=== PATIENT | female | born 1990 | race Caucasian/White ===

== ENCOUNTER → 2016-06-23 13:27 | Outpatient (CLI) | payer OTHER ==
[2014-01-19 08:12] VITALS: BMI 19.3
[~2016-06-23 13:27] MED LIST: FERROUS SULFAT325 MG PO; IBUPROFEN600 MG PO; LORTAB 5/500 TA1 TA2 PO; PERCOCET 5-3251 TAB PO; PRENATAL COMPLE1 TAB PO
[2016-06-23 14:49] LABS: APPEARANCE CLEAR (CLEAR); BILIRUBIN NEGATIVE (NEGATIVE); COLOR YELLOW (YELLOW); GLUCOSE 100 mg/dL (NEGATIVE); KETONE NEGATIVE (NEGATIVE); LEUKOCYTE ESTERASE NEGATIVE (NEGATIVE); NITRITE NEGATIVE (NEGATIVE); PROTEIN NEGATIVE (NEGATIVE); SPECIFIC GRAVITY 1.025 (1.005-1.020); UROBILINOGEN NORMAL (NORMAL)
== END | disposition home or self-care (01) ==
LOC: D.LDO 13:27
PROVIDERS: Obstetrics & Gynecology
DX: O36.8130 Decreased fetal movements, third trimester, not applicable or unspecified (principal); Z3A.38 38 weeks gestation of pregnancy

== ENCOUNTER 2016-07-06 04:29 | Inpatient (IN) | payer OTHER ==
[~2016-07-06] VITALS: Ht 170.2 cm; Wt 82.3 kg
[~2016-07-06 04:29] MED LIST changes: -FERROUS SULFAT325 MG PO; -PERCOCET 5-3251 TAB PO; -PRENATAL COMPLE1 TAB PO
[2016-07-06] MEDS ORDERED: FERROUS SULFAT325 MG PO (05:00)
[2016-07-06] MEDS ORDERED: PRENATAL COMPLE1 TAB PO (05:00)
[2016-07-06 05:09] VITALS: BP 109/62; Ht 170.2 cm; Wt 82.3 kg
[2016-07-06 06:05] LABS: HEMATOCRIT 34.6 % (36.0-48.0); HEMOGLOBIN 10.4 g/dL (12-16); MCH 26.1 pg (26.0-34.0); MCHC 30.1 g/dL (31.0-37.0); MCV 86.7 fL (80.0-100.0); MEAN PLATELET VOLUME 10.3 fL (7.4-10.4); RBC 3.99 10x6/uL (4.00-5.40); RDW 17.6 % (11.5-14.5); WBC 10.8 10x3/uL (4.8-10.8)
[2016-07-06 06:37] LABS: APPEARANCE CLOUDY (CLEAR); BACTERIA MANY /hpf (NONE SEEN); BILIRUBIN NEGATIVE (NEGATIVE); COLOR YELLOW (YELLOW); GLUCOSE NEGATIVE (NEGATIVE); KETONE NEGATIVE (NEGATIVE); LEUKOCYTE ESTERASE TRACE (NEGATIVE); MUCUS <1+ /lpf (NONE SEEN); NITRITE NEGATIVE (NEGATIVE); PH 5.5 (5.0-6.0); PROTEIN NEGATIVE (NEGATIVE); RED CELLS - URINE RARE /hpf (0-5); SPECIFIC GRAVITY 1.025 (1.005-1.020); UROBILINOGEN NORMAL (NORMAL); WHITE CELLS - URINE 0-5 /hpf (0-5)
--- NOTE | 2016-07-06 19:00 | NUR ---
SHIFT REPORT FROM SAMAN STANLEY RN
--- NOTE | 2016-07-06 19:10 | NUR ---
PM ROUNDS MADE, PT VISITING WITH A ROOM FULL OF FAMILY AND FRIENDS, INFORMED PT THAT I WILL COME BACK TO DO ASSESSMENT, PT STATES "THANK YOU", PT DENIES NEEDS OR PAIN AT THIS TIME
[2016-07-06 20:00] VITALS: BP 116/67
--- NOTE | 2016-07-06 20:00 | NUR ---
PT FOOT WORKER LIGHT, PT NEEDING TO GET UP TO VOID, ASSESSMENT PER FLOW SHEET, VS OBTAINED, FF, ML, U/U, PT UP TO BR WITH ASSISTANCE, GAIT STEADY, DENIES ANY DIZZYNESS OR LIGHTHEADEDNESS, PT INST ON, ASSISTED WITH, AND VERBALIZES UNDERSTANDING OF CHRISSY CARE, ASSISTED PT WITH CHRISSY PAD, PANTIES AND GOWN, PT DENIES FLATUS, PT BACK TO BED, C/O CRAMPING, INFORMED PT THAT I WILL ADM MOTRIN, PT REQUESTED TO TAKE IT WITH APPLESAUCE, PT DENIES FURTHER NEEDS, FOB HOLDING BABY, OTHER CHILD AND FAMILY IN ROOM
--- NOTE | 2016-07-06 20:23 | NUR ---
ADM TANNER MORTON PER MD ORDERS WITH CHRISTINA ARREOLA, PT DENIES FURTHER NEEDS
--- NOTE | 2016-07-06 21:08 | NUR ---
PT JUST FINISHED , FOB SWADDLING BABY, ADM MOM PO PER MD ORDERS, PT RATES CHRISSY PAIN 2/10, REFUSES PAIN MED AT THIS TIME, INST PT TO USE CALL LIGHT WHEN AND IF SHE DECIDES TO TAKE ANY, BEDDING PROIVDED TO FOB, REQUESTED AND SERVED FRESH H20, DENIES FURTHER NEEDS
--- NOTE | 2016-07-06 22:15 | NUR ---
PT HOLDING BABY, PT INFORMS ME SHE HAS BEEN TRYING TO GET THE NSY NURSE BECAUSE BABY HAS TO HAVE ITS BLOOD SUGAR CHECKED BEFORE FEEDING, INFORMED PT THAT THE NSY NURSE WAS IN A DELIVERY AT THIS TIME, BUT SHOULD BE OUT SHORTLY, INFORMED PT THAT I WILL INFORM THE NSY NURSE SOON SHE IS OUT OF THE DELIVERY, PT VERBALIZES UNDERSTANDING, DENIES FURTHER NEEDS OR PAIN AT THIS TIME, FOB AT BEDSIDE
--- NOTE | 2016-07-07 00:14 | NUR ---
PT RESTING WITH EYES CLOSED, RESP QUIET, NO DISTRESS NOTED, LEFT UNDISTURBED AT THIS TIME, FOB ASLEEP ON COUCH
--- NOTE | 2016-07-07 02:06 | NUR ---
PT RESTING WITH EYES CLOSED, RESP QUIET, NO DISTRESS NOTED, LEFT UNDISTURBED AT THIS TIME, FOB ASLEEP ON COUCH
--- NOTE | 2016-07-07 04:01 | NUR ---
PT BABY, DENIES NEEDS OR PAIN AT THIS TIME, FOB ASLEEP ON COUCH
[2016-07-07 05:27] LABS: BASOPHILS 0.3 % (0.0-2.0); EOSINOPHILS 0.5 % (0-7); HEMATOCRIT 30.8 % (36.0-48.0); HEMOGLOBIN 9.3 g/dL (12-16); IMMATURE GRANULOCYTES 0.6 % (0-5); LYMPHOCYTES 16.3 % (15-50); MCHC 30.2 g/dL (31.0-37.0); MEAN PLATELET VOLUME 10.4 fL (7.4-10.4); MONOCYTES 7.3 % (2-11); PLATELET COUNT 189 10x3/uL (130-400); RBC 3.58 10x6/uL (4.00-5.40); RDW 17.9 % (11.5-14.5); WBC 13.4 10x3/uL (4.8-10.8)
--- NOTE | 2016-07-07 06:05 | NUR ---
PLEASE NOTE THAT ERROR IN DOCUMENTATION OCCURRED REGARDING THE TIME OUT AT 0332 PREVIOUSLY DOCUMENTED. CHARTING WAS PERFORMED ON WRONG PT.
--- NOTE | 2016-07-07 06:10 | NUR ---
PT RESTING WITH EYES CLOSED, RESP QUIET, NO DISTRESS NOTED, LEFT UNDISTURBED AT THIS TIME, FOB ASLEEP ON COUCH
--- NOTE | 2016-07-07 07:00 | NUR ---
SHIFT REPORT TO LUCIANA BRITTON RN
--- NOTE | 2016-07-07 07:35 | NUR ---
PATIENT RESTING QUIELTY WITH EYES CLOSED. NO NEEDS NOTED, DID NOT DISTURB. RESPIRATIONS DEEP AND EVEN
[2016-07-07 08:00] VITALS: BP 112/67
[2016-07-07 08:20] LABS: RAPID PLASMA REAGIN Non Reactive (Non Reactive)
--- NOTE | 2016-07-07 08:49 | NUR ---
JENNIFER SITTING UP IN HER BED, HOB UP 45 DEGREES. SHE IS BREAST FEEDING HER . SHE STATE SHTAT SHE ISN'T NEARLY SORE SHE'D EXPECTED AND RATES HER CRAMPING PAIN A 4. SHE WOULD LIKE AN IBUPROFEN, CRUSHED IN PUDDING BUT WOULD LIKE TO WAIT UNTIL AFTER SHE HAS FINISHED FEEDING HER BABY. SHE STATES THAT HER BLEEDING IS LIKE THAT OF A HEAVY PERIOD. HER CALL LIGHT IS WITHIN HER REACH. SHE DENIES HAVING ANY NEEDS AT THIS TIME.
--- NOTE | 2016-07-07 09:58 | NUR ---
JENNIFER VSS. IV SL REMOVED FROM THE LEFT WRIST, CATHETER FULLY INTACT. LINENS PROVIDED FOR JENNIFER TO SHOWER PER REQUEST. HER FUNDUS IS FIRM, MODLINE AND U/2. SHE STATES THAT THAT HER BLEEDING IS LIKE THAT OF A HEAVY PERIOD. ENCOURAGED HER TO PERIODICALLY MASSAGE HER URERUS GENTLY TO ENCOURAGE FIRMNESS. SHE STATES THAT CRAMPING DOES OCCUR DURING . MOTRIN GIVEN FOR DISCOMFORT. SHE DECLINES ANYTHING STRONGER AT THIS TIME.
--- NOTE | 2016-07-07 10:35 | NUR ---
Priscilla Jerome 07/07/16 LE@ 9:15 S: Patient states is going great, just started to nurse not to long ago, open to me looking at baby latches. O: Patient sitting up in bed, . Observed nursing on left breast. checks around, mouth 140 degrees, round cheeks, sucking in a rocking motion. wasn't turned tummy to tummy, more upright, head turned. . Suggested to turn , patient did. Explain how to verify is latched correctly Asked patient how is , any questions or concern? Client states is good, she did breastfeed her other baby. Encouraged to continue to latch infant for every feeding, explain feeding cues, benefits of skin to skin. takes time and patience in the beginning, the more is placed to the breast, her body will increase, they amount of milk needed for infant. Provided and explain handout on waking a sleeping baby, positions for , what to expect the first week, engorgement during , and hand expression. Asked if she gets WIC, patient states no, not sure if she wants to. Provided fact sheet on how to qualify. Will follow up, asked if any needs or concerns, client declined. A: Patient appears confident with . P: Continue to support exclusively . Lxeis Mills, CLC
--- NOTE | 2016-07-07 10:51 | NUR ---
PATIENT RESTING BACK IN HER BED AFTER TAKING A SHOWER. SHE STATES THAT HER CRAMPS ARE BETTER AND REALLY ONLY ARISE WHEN SHE IS BREAST FEEDING. FOB IS IN THE BEDSIDE CHAIR HOLDING . PATIENT IS SMILING AND APPEARS HAPPY. DENIES NEEDS.
--- NOTE | 2016-07-07 12:21 | NUR ---
PATIENT IS RESTING QUIETLY IN HER ROOM WITH THE LIGHTS OUT AND TV ON, VOLUME LOW. CRADLING HER INFANT AND LOOKING AT HER PHONE. SHE DENIES NEEDS. STATES LUNCH WAS GOOD AND DENIES DISCOMFORT. CALL LIGHT IS WITHIN HER REACH. ENCOURAGED HER TO CALL FOR ANY ASSISTANCE.
[2016-07-07] MEDS ORDERED: IBUPROFEN600 MG PO (13:19)
[2016-07-07] MEDS ORDERED: PERCOCET 5-3251 TAB PO (13:19)
--- NOTE | 2016-07-07 13:30 | NUR ---
PATIENT SITTING UP WITH VISITORS AT THE BEDSIDE. SHE DENIES NEEDS/ PAIN.
--- NOTE | 2016-07-07 14:45 | NUR ---
PATIENT SITTING UP IN HER BED VISITING WITH VISITORS. SHE IS HAPPY TO BE GOING HOME TODAY PER HER STATE STATEMENT.
--- NOTE | 2016-07-07 15:40 | NUR ---
DISCUSSED DISCHARGE INSTRUCTIONS WITH HER. INCLUDED PERICARE, MEDICATIONS, FOLLOW UP APPT, AND PELVIC REST. PRESCRIPTIONS GIVEN. SHE IS BREAST FEEDING HER AND WISHES TO FINISHE THISTASK BEFORE LEAVING. ENCOURAGED HER TO LET US KNOW WHEN SHE IS READY SO THAT WE CAN WHEEL HER OUT. SHE IS WITHOUT EXPRESSED NEEDS. FOB AND TODDLER AT THE BEDSIDE.
--- NOTE | 2016-07-07 17:25 | NUR ---
PATIENT WHEELED OUT TO WAITING CAR. FOB AND TODDLER ACCOMPANYING HER.
== END 2016-07-07 17:00 | disposition home or self-care (01) | DRG 775 ==
LOC: D.LD 04:29 → D.SDCHOLD 04:30 → D.LD 18:59
PROVIDERS: ADMIT Specialist
PROC: 10E0XZZ Delivery of Products of Conception, External Approach (ICD-10-PCS; principal; 2016-07-06)
PROC: 0W8NXZZ Division of Female Perineum, External Approach (ICD-10-PCS; 2016-07-06)
DX: O99.334 Smoking (tobacco) complicating childbirth (principal); Z3A.39 39 weeks gestation of pregnancy; Z37.0 Single live birth; Z87.410 Personal history of cervical dysplasia; O32.6XX0 Maternal care for compound presentation, not applicable or unspecified; O69.81X0 Labor and delivery complicated by cord around neck, without compression, not applicable or unspecified

== ENCOUNTER 2019-04-08 17:18 | Emergency (ER) | payer OTHER ==
[~2019-04-08] VITALS: Ht 170.2 cm; Wt 84.1 kg
[~2019-04-08 17:18] MED LIST changes: +FERROUS SULFAT325 MG PO; +PERCOCET 5-3251 TAB PO; +PRENATAL COMPLE1 TAB PO
[2019-04-08 17:25] VITALS: Ht 170.2 cm; Wt 84.1 kg
[2019-04-08 21:27] VITALS: BP 130/71
== END 2019-04-08 21:27 | disposition home or self-care (01) ==
LOC: D.ER 17:18
DX: H53.122 Transient visual loss, left eye (principal); R51 Headache